=== PATIENT | male | born 1985 | race Caucasian/White ===

== ENCOUNTER → 2022-03-12 | Outpatient (CLI) | payer OTHER ==
--- NOTE | 2022-03-12 13:19 | CT ---
EXAMINATION TYPE: CT abdomen pelvis wo con CT DLP: 908.30 mGycm, Automated exposure control for dose reduction was used. DATE OF EXAM: 03/12/2022 12:58 PM COMPARISON: None. CLINICAL INDICATION:Male, 36 years old with history of R10.9 unspecified abdominal pain; lower R flan k pain that wraps around the front TECHNIQUE: Axial CT of the abdomen and pelvis. Sagittal and coronal reformats were created on a [employer] workstation. Contrast used: None Oral contrast used: without Oral Contrast FINDINGS: LOWER CHEST: Unremarkable ABDOMEN LIVER: Unremarkable GALLBLADDER AND BILE DUCTS: Unremarkable. PANCREAS: Unremarkable. SPLEEN: Small splenule is present. ADRENAL GLANDS: Unremarkable. KIDNEYS AND URETERS: No evidence of hydronephrosis or renal calculus. The ureters are unremarkable. PELVIS BLADDER: Unremarkable REPRODUCTIVE: Coarse calcifications of the prostate gland are identified. ABDOMEN & PELVIS STOMACH AND BOWEL: No evidence of bowel obstruction. Appendix is normal without significant fat stran ding changes or dilation. PERITONEUM: No evidence of pneumoperitoneum or free fluid. VASCULATURE: No evidence of aortic aneurysm. MUSCULOSKELETAL: No acute osseous abnormalities, mild scoliosis changes to the lower thoracic spine p artially visualized. LYMPH NODES: No gross evidence for lymphadenopathy. SOFT TISSUE/ABDOMINAL WALL: Fat filled umbilical hernia measuring 1.3 cm at the neck. IMPRESSION: No convincing evidence for acute intra-abdominal process. The appendix is within normal limits for si ze without significant fat stranding changes or evidence of appendicitis. No evidence of right hydron ephrosis or obstructive uropathy
== END | disposition home or self-care (01) ==
LOC: RADCTMAIN 12:38
PROVIDERS: ATTEND Family Medicine
DX: R10.9 Unspecified abdominal pain (principal)
CPT/HCPCS: 74176

== ENCOUNTER → 2023-02-14 | Outpatient (CLI) | payer OTHER ==
--- NOTE | 2023-02-14 15:49 | MR ---
EXAMINATION TYPE: MR cervical spine wo con DATE OF EXAM: 02/14/2023 COMPARISON: None HISTORY: Neck pain that radiates down left arm, left arm numbness and loss of strength CONTRAST: None TECHNIQUE: Multiplanar multiecho imaging on a 3.0 Lissette magnet is performed through the cervical spin e. FINDINGS: The craniovertebral junction is normal. Vertebral body alignment is normal. C7-T1: Mild disc bulge is present with anterior thecal sac contact. There may be some cord contact. No cord flattening is evident. No spinal canal stenosis present. Neural foramen are patent.. C6-7: Broad-based disc bulge is present with anterior thecal sac impression. Cord contact is present. Mild cord flattening may be present. There is moderate left foraminal narrowing.. C5-6: Left paracentral disc herniation is present with mild anterior thecal sac compression. A small annular tear may be present at this level at the disc herniation. This has anterior thecal sac contac t and cord contact. Cord deformity is not identified. No spinal canal stenosis present. Neural forame n are patent.. C4-5: There is a central disc herniation with moderate anterior thecal sac compression. Cord contact without cord deformity is present. Subligamentous disc extension superiorly is present. Moderate bila teral foraminal narrowing is present, greater on the right. C3-4: No focal disc herniation or significant disc bulge is evident. Minimal subligamentous disc exte nsion may be present in the sagittal plane. No spinal canal stenosis. Moderate right mild left negro inal narrowing present. C2-3: No focal disc herniation or significant disc bulge is evident. No spinal canal stenosis or hector ral foraminal stenosis is present. IMPRESSION: 1. Left paracentral disc herniation with cord contact without deformity present C5-6. No spinal canal stenosis. 2. Broad-based disc bulge with anterior thecal sac flattening cord contact C6-7. There may be minimal cord contact. 3. Central C4-5 disc herniation with cord contact. No cord deformity is evident 4. Foraminal stenosis discussed above.
== END | disposition home or self-care (01) ==
LOC: RADMRIMAIN 13:45
PROVIDERS: ATTEND Orthopaedic Surgery Orthopaedic Surgery of the Spine
DX: M50.122 Cervical disc disorder at C5-C6 level with radiculopathy (principal); M99.71 Connective tissue and disc stenosis of intervertebral foramina of cervical region; M79.12 Myalgia of auxiliary muscles, head and neck
CPT/HCPCS: 72141

== ENCOUNTER → 2023-02-25 | Outpatient (CLI) | payer OTHER ==
--- NOTE | 2023-02-25 10:40 | XR ---
EXAMINATION TYPE: XR chest 2V DATE OF EXAM: 02/25/2023 10:17 AM CLINICAL INDICATION:Male, 37 years old with history of PRE SURG TESTING; [facility] COMPARISON: None TECHNIQUE: XR chest 2V Frontal and lateral views of the chest. FINDINGS: Lungs/Pleura: There is no evidence of pleural effusion, focal consolidation, or pneumothorax. Pulmonary vascularity: Unremarkable. Heart/mediastinum: Cardiomediastinal silhouette is unremarkable. Musculoskeletal: No acute osseous pathology. IMPRESSION: No acute cardiopulmonary disease/process.
[2023-02-25 10:52] LABS: INR 0.9 (<1.2); Partial Thromboplastin Time 22.8 sec (22.0-30.0); Prothrombin Time 9.7 sec (10.0-12.5)
[2023-02-25 15:28] LABS: Basophils # (A) 0.03 X 10*3/uL (0.00-0.10); Basophils % (A) 0.4 %; Eosinophils # (A) 0.11 X 10*3/uL (0.04-0.35); Eosinophils % (A) 1.4 %; HCT 45.8 % (39.6-50.0); HGB 14.9 g/dL (13.0-17.0); Lymphocytes # (A) 2.01 X 10*3/uL (0.90-5.00); Lymphocytes % (A) 26.4 %; MCHC 32.5 g/dL (32.0-37.0); MCV 89.3 FL (80.0-97.0); Mean Platelet Volume 9.6 FL (9.5-12.2); Monocytes # (A) 0.51 X 10*3/uL (0.20-1.00); Monocytes % (A) 6.7 %; NRBC Per 100 WBC 0 X 10*3/uL (0.00-0.01); Neutrophils # (A) 4.92 X 10*3/uL (1.80-7.70); Neutrophils % (A) 64.8 %; Platelet Count 254 X 10*3/uL (140-440); RBC 5.13 X 10*6/uL (4.40-5.60)
[2023-02-25 15:54] LABS: ALT 98 U/L (10-49); AST 26 U/L (14-35); Albumin 4.7 g/dL (3.8-4.9); Albumin/Globulin Ratio 2.14 Ratio (1.60-3.17); Alkaline Phosphatase 59 U/L (41-126); BUN/Creat Ratio 24.44 Ratio (12.00-20.00); Calcium 9.7 mg/dL (8.7-10.3); Carbon Dioxide 26.7 mmol/L (21.6-31.8); Chloride 107 mmol/L (96-109); Globulin 2.2 g/dL (1.6-3.3); Glucose 95 mg/dL (70-110); Potassium 4.8 mmol/L (3.5-5.5); Sodium 142 mmol/L (135-145); Total Bilirubin <0.2 mg/dL (0.3-1.2); Total Protein 6.9 g/dL (6.2-8.2)
[2023-02-25 17:26] LABS: Appearance,Urine Clear (Clear); Bilirubin,Urine Negative (Negative); Blood,Urine Negative (Negative); Color,Urine Dark Yellow (Yellow); Ketones,Urine Trace (Negative); Nitrite,Urine Negative (Negative); Specific Gravity,Urine 1.034 (1.001-1.030)
== END | disposition home or self-care (01) ==
LOC: LABPAT 09:57
PROVIDERS: ATTEND Orthopaedic Surgery Orthopaedic Surgery of the Spine
DX: Z01.812 Encounter for preprocedural laboratory examination (principal); M51.26 Other intervertebral disc displacement, lumbar region
CPT/HCPCS: 36415; 71046; 80053; 81003; 85025; 85610; 85730; 87070

== ENCOUNTER → 2023-03-05 | Outpatient (CLI) | payer OTHER | END | disposition home or self-care (01) | LOC: LABPAT 12:48 | PROVIDERS: ATTEND Orthopaedic Surgery Orthopaedic Surgery of the Spine | DX: Z01.812 Encounter for preprocedural laboratory examination (principal); S06.A1XD Traumatic brain compression with herniation, subsequent encounter; X58.XXXD Exposure to other specified factors, subsequent encounter | CPT/HCPCS: 36415; 86850; 86900; 86901 ==

== ENCOUNTER 2023-03-13 12:13 | Day surgery (SDC) | payer OTHER ==
[2023-03-07 16:27] VITALS: BMI 30.2
[~2023-03-13 12:13] MED LIST: DEXAMETHASONE SOD PHOSPHATE 4 MG/ML 1 ML VIAL IV ONE; HYDROmorphone 0.5 MG/0.5 ML SYRINGE IVP PRN; LACTATED RINGERS 1,000 ML IV SCH; LIDOCAINE 1% (10MG/ML) FOR IV START INTRADERMA PRN; MIDAZOLAM 2 MG/2 ML VIAL IV PRN; ONDANSETRON 4 MG/2 ML VIAL IVP ONE; ceFAZolin 1,000 MG in SODIUM CHLORIDE 0.9% IRRIGATIO 1,000 ML IRRIGATION PRN
[2023-03-13] MEDS ORDERED: LACTATED RINGERS 1,000 ML IV ONE ×2 (13:25→16:18)
[2023-03-13 13:28] LABS: Glucose,Whole Blood 92 mg/dL (70-110)
[2023-03-13] MEDS ORDERED: MIDAZOLAM 2 MG/2 ML VIAL ONE (14:39)
[2023-03-13] MEDS ORDERED: KETAMINE HCL IN 0.9 % NACL 50 MG/5 ML SYRINGE ONE (14:39)
[2023-03-13] MEDS ORDERED: DEXAMETHASONE SOD PHOSPHATE 4 MG/ML 1 ML VIAL ONE (14:39)
[2023-03-13] MEDS ORDERED: SUCCINYLCHOLINE CHLORIDE 200 MG/10 ML VIAL IV ONE (14:39)
[2023-03-13] MEDS ORDERED: PROPOFOL 10 MG/ML 20 ML VIAL IV ONE (14:39)
[2023-03-13] MEDS ORDERED: LIDOCAINE 1% INJ 10MG/ML (20 ML MDV) ONE (14:39)
[2023-03-13] MEDS ORDERED: fentaNYL (PF) 50 MCG/ML 2 ML AMP ONE (14:39)
[2023-03-13] MEDS ORDERED: GELATIN SPONGE,ABSORB (LARGE) 1 EACH SPONGE TOPICAL ONE (15:11)
[2023-03-13] MEDS ORDERED: THROMBIN (BOVINE) 5,000 UNIT VIAL TOPICAL ONE (15:11)
[2023-03-13] MEDS ORDERED: LIDOCAINE 0.5%-EPI 1:200,000 50 ML VIAL SQ ONE (15:11)
[2023-03-13] MEDS ORDERED: HYDROmorphone 0.5 MG/0.5 ML SYRINGE IVP PRN (16:42)
[2023-03-13] MEDS ORDERED: HYDROmorphone 1 MG/ML 1 ML SYRINGE IVP PRN (16:42)
[2023-03-13] MEDS ORDERED: CYCLOBENZAPRINE 10 MG TAB PO PRN ×2 (16:42→16:44)
[2023-03-13] MEDS ORDERED: ONDANSETRON 4 MG/2 ML VIAL IVP PRN (16:42)
[2023-03-13] MEDS ORDERED: traMADol 50 MG TAB PO PRN (16:42)
--- NOTE | 2023-03-13 16:50 | P.OP ---
Date of Procedure: 03/13/23 Preoperative Diagnosis: Cervical myelopathy, cervical myelomalacia, cervical stenosis C5 6 C6 7, herniated nucleus pulposis C5 6 C6 7, left upper extremity radiculopathy, left upper extremity weakness Postoperative Diagnosis: Same Anesthesia: GETA Pathology: none sent Condition: stable Disposition: PACU Description of Procedure: BRIEF OPERATIVE NOTE Preoperative Diagnosis:Cervical myelopathy, cervical myelomalacia, cervical stenosis C5 6 C6 7, herniated nucleus pulposis C5 6 C6 7, left upper extremity radiculopathy, left upper extremity weakness Postoperative Diagnosis: Same Procedure: Anterior cervical decompression discectomy and fusion C5 6 C6 7 Placement of interbody graft C5 6 C6 7 Application of anterior cervical plate C5 6 and 7 Surgeon: Dr. Linda Body Line Finisher: Grady Villafana is present throughout the entire the case persistence during positioning, dissection, exposure, visualization, and all crucial elements of the case as well as closure. Anesthesia: General anesthesia Estimated blood loss: Approximately 30 mL Complications: None apparent Components implanted: K2M Phillip Hominy anterior cervical plate system with screws and Vikos interbody allograft bone graft with 1 mL of DBX bone putty Disposition: To recovery room in good stable condition. OPERATIVE INDICATIONS The patient has had significant and severe issues in their neck and upper extremities. He noted significant weakness at his left upper extremity and tingling in his left arm. He is not having significant benefit despite a ggressive conservative care. The patient had evaluation was found have significant cervical stenosis severe at C5 6 and C6 7. There is disc herniation at C6 7 and at C5 6 which correlated with his neck and upper extremity symptoms. He showed evidence on his imaging of cervical myelomalacia and on his exam was exhibiting signs of myelopathy. With his significant symptoms and weakness with his spinal cord changes we felt that he had significant chance of worsening left alone and would have best potential benefit with cervical decompression. I felt that surgical decompression with discectomy and fusion at C5 6 C6 7 would give excellent chance of recovery and remedy his stenosis. The patient has been through conservative treatment. We discussed various treatment options including surgery, and the patient wishes to proceed with surgery We discussed the risk, patient's alternatives and benefits of surgery including but not limited to, risk of bleeding risk of infection, risk of need for further surgery, risk of decreased, loss of motion, muscle function, malunion nonunion, hardware failure, nerve damage, paralysis, heart attack, and . OPERATIVE SUMMARY After discussing all the risks, patient alternatives and benefits at length, the patient elected to proceed with surgical intervention, signed informed consent, and presented for their procedure. The patient was seen and examined in the preoperative holding area and the surgical site was marked. The patient was given antibiotics and brought to the operating room. The patient was positioned on the operating room table in a supine position being careful to pad any bony prominences and pressure points. The patient was sedated and intubated by anesthesia in standard fashion. Once the airway and C- spine were stabilized the patient's arms were padded and tucked at her side, with her shoulders gently taped. The head was placed in a donut pad with the neck in good neutral alignment and position. We were careful to maintain the patient's cervical spine and good neutral alignment and position throughout. The patient was prepped and draped in a normal standard fashion. An appropriate timeout and keystone protocol performed. We were able to proceed with the surgery. The local wound area was infiltrated with local anesthetic. An incision was made transversely approximately 2-1/2 cm over the appropriate levels at C6. Dissection was taken down subcutaneously to the level of the platysma which was split in line with its fibers. Dissection was taken with a carotid approach, with the trachea and esophagus medial and the carotid sheath laterally. We dissected down to the anterior surface of the vertebral bodies. Intraoperative x-ray was taken which showed a marker at the appropriate level at C6 7. With the appropriate level positively confirmed, we were able to proceed with discectomy at the appropriate levels first at C6 7 and then at C5 6. All of the operative levels were exposed appropriately. The patient had all their twitches back, and there was no evidence of recurrent laryngeal issue. The wound was copiously irrigated and suctioned dry as had been done periodically throughout the case. At the appropriate level/levels, I established an annulotomy with an 11 blade scalpel. A discectomy was performed with a combination of pituitary rongeurs, curettes, a high-speed bur, and Kerrison rongeurs. The posterior longitudinal ligament was taken down as were any posterior osteophytes. This gave good central and bilateral foraminal decompression. At C6 7 there is obvious disc herniation with disc extrusion to the left side which was removed and decompressed. At C5 6 there is significant disc protrusion and herniation was decompressed as well. There is no evidence of any dural tear or leak. The endplates were prepared with a high-speed bur. With the endplates in good parallel position, I was able to size for the appropriate size interbody graft. The wound was irrigated and suctioned dry the graft was prepared and malleted into position. It had good alignment and position with the anterior surface flush with the anterior surface of the vertebral bodies. This was done similarly the appropriate levels first at C6 7 and then at C5 6. With the grafts intact, I was able to measure and contour and appropriate sized plate. The plate was positioned at the midline over the appropriate levels at C5 6 and 7. Screw holes were established with a hand drill and drill guide. Screws were placed in good alignment and position with excellent bony purchase. They were seated under the locking device. The construct was checked and found to be stable. Intraoperative x-ray was taken which showed good alignment and position of the implants at the appropriate levels. There was no evidence of any dural tear or leak. Good hemostasis was maintained. The wound was copiously irrigated and suctioned dry as had been done periodically throughout the case. The platysma was closed with absorbable suture. The subcutaneous tissue was closed. The subcuticular tissue was closed with absorbable suture. The wound was cleaned and dried and dressed appropriately. A soft cervical collar was placed appropriately. The patient was woken up by anesthesia, extubated, transferred back gently to their hospital bed and brought to the recovery room in good stable condition. The patient will be admitted to the hospital for appropriate postoperative care, medical management and monitoring. We will continue to follow them closely about the postoperative course.
[2023-03-13] MEDS: SODIUM CHLORIDE 0.9% 1,000 ML IV SCH (17:55)
[2023-03-13] MEDS: HYDROcodone/APAP 5-325MG 1 EACH TAB PO PRN ×2 (18:25→23:00)
--- NOTE | 2023-03-13 18:39 | XR ---
EXAMINATION TYPE: XR cervical spine 1V DATE OF EXAM: 03/13/2023 COMPARISON: 03/13/2023 HISTORY: Cervical fusion TECHNIQUE: Lateral cervical spine FINDINGS: Metallic needle directed towards C6-7 disc level. Patient is intubated IMPRESSION: 1. Needle directed to the C6-7 level
--- NOTE | 2023-03-13 18:40 | XR ---
EXAMINATION TYPE: XR cervical spine 1V DATE OF EXAM: 03/13/2023 COMPARISON: 03/13/2023 earlier exam HISTORY: Anterior cervical fusion TECHNIQUE: Lateral cervical spine FINDINGS: Anterior cervical fusion is performed C5-C7. Disc spacers are present at these levels. Brenda ent is intubated. IMPRESSION: 1. Anterior cervical fusion see C 5 through C7
[2023-03-14] MEDS ORDERED: CLINDAMYCIN 900 MG in DEXTROSE 5% IN WATER 50 ML IVPB SCH ×2
[2023-03-14] MEDS: BENZOCAINE/MENTHOL LOZENG 1 EACH LOZENGE MUCOUS MEM PRN ×2 (01:29→06:22)
[2023-03-14] MEDS: SODIUM CHLORIDE 0.9% 1,000 ML IV SCH (06:22)
[2023-03-14] MEDS: HYDROcodone/APAP 5-325MG 1 EACH TAB PO PRN (07:00)
[2023-03-14 08:12] VITALS: BP 115/72; PULSE 62; RESP 19; TEMP 97.4
[2023-03-14] MEDS ORDERED: SERTRALINE 100 MG TAB PO SCH (09:00)
[2023-03-14] MEDS ORDERED: MULTIVITAMINS, THERA 1 EACH TAB PO SCH (09:00)
[2023-03-14] MEDS ORDERED: CHOLECALCIFEROL 125 MCG (5000 IU) TABLET PO SCH (09:00)
--- NOTE | 2023-03-14 09:48 | P.DS ---
Providers Date of admission: 03/13/23 Attending physician: Hortensia Linda Primary care physician: [facility] Course: The patient presented on the day of admission as per their operative note. He underwent anterior cervical decompression with discectomy and fusion C5 6 C6 7 for his cervical stenosis with myelopathy and myelomalacia and disc herniation with left lower extremity weakness. He feels he has some improvement in his strength his left arm. He still has some tingling at certain locations his arm and some pain up behind the shoulder. He is swelling adequately. He is ambulating and voiding freely. Physical Exam The incision site is clean dry and intact. There is no erythema no drainage. There is no purulence no evidence of infection. His neck is soft and supple Abdomen soft and nontender. Chest has good excursion with deep inspiration and expiration. The patient has active and passive range of motion intact at the upper and lower extremities. There is no acute change in neurologic status. He has motion intact at his upper extremities he does have some diffuse weakness at his left upper extremity Hospital Course Postoperative day #1 status post decompression fusion and anterior cervical discectomy and fusion C5 6 C6 7 for his cervical stenosis with disc herniation cervical myelopathy and upper extremity radiculopathy and weakness. Patient is making good improvement postoperatively. The patient has been making good progress postoperatively. They have completed the prophylactic antibiotics without any signs or symptoms of infection. The patient has been able to advance their diet, and is tolerating diet adequately. The pain was initially controlled with IV medications and is now controlled appropriately with oral medications. The patient has been able to increase their mobilization. The patient has progressed appropriately. I think they are in good stable condition for discharge today. They will be sent home with appropriate prescriptions. I answered their questions to the best of my ability in a language that they can understand and they are agreeable with the plan. They will follow up as directed in approximately 2 weeks or sooner if he is having problems. Patient Condition at Discharge: Good Plan - Discharge Summary Discharge Rx Participant: No New Discharge Prescriptions: New HYDROcodone/APAP 5-325MG [[place] 5-325] 1 tab PO Q6HR PRN 7 Days #28 tab PRN Reason: Pain No Action Sertraline [Zoloft] 100 mg PO QAM Ibuprofen [Motrin] 400 - 600 mg PO Q6HR PRN PRN Reason: Pain Cyclobenzaprine [Flexeril] 10 mg PO TID PRN PRN Reason: Pain Multivitamins, Thera [Multivitamin (formulary)] 1 tab PO DAILY Cholecalciferol [Vitamin D3 (25 Mcg = 1000 Iu)] 125 mcg PO DAILY Discharge Medication List Sertraline [Zoloft] 100 mg PO QAM 08/07/15 [History] Cholecalciferol [Vitamin D3 (25 Mcg = 1000 Iu)] 125 mcg PO DAILY 03/07/23 [History] Cyclobenzaprine [Flexeril] 10 mg PO TID PRN 03/07/23 [History] Ibuprofen [Motrin] 400 - 600 mg PO Q6HR PRN 03/07/23 [History] Multivitamins, Thera [Multivitamin (formulary)] 1 tab PO DAILY 03/07/23 [History] HYDROcodone/APAP 5-325MG [[place] 5-325] 1 tab PO Q6HR PRN 7 Days #28 tab 03/13/23 [Rx] Follow up Appointment(s)/Referral(s): Hortensia Linda DO [Doctor of Osteopathic Medicine] - 2 Weeks Activity/Diet/Wound Care/Special Instructions: Keep site clean. May shower with waterproof Tegaderm intact. Do not soak in a tub. After 72 hours postoperatively, patient May remove dressing and then may shower with area uncovered. Leave glue intact and allow it to fray off on its own. May ambulate as tolerated. Avoid heavy or rigorous activity. No repetitive bending twisting or lifting. No overhead work. Discharge Disposition: HOME SELF-CARE
== END 2023-03-14 09:47 | disposition home or self-care (01) ==
LOC: OR 12:13 → 4SSUR 16:42 → OR 03-14 09:47
PROVIDERS: ATTEND Orthopaedic Surgery Orthopaedic Surgery of the Spine
DX: M48.02 Spinal stenosis, cervical region (principal); M50.223 Other cervical disc displacement at C6-C7 level; E66.9 Obesity, unspecified; G95.89 Other specified diseases of spinal cord; Z88.2 Allergy status to sulfonamides; Z88.1 Allergy status to other antibiotic agents; Z88.8 Allergy status to other drugs, medicaments and biological substances
CPT/HCPCS: 72020; 20930; 20931; 22551; 22552; 22845; C1713 ×2; C1762 ×2; J2250; J0690; J2405; J1170; J0736

== ENCOUNTER → 2024-08-24 | Outpatient (CLI) | payer OTHER ==
[2024-08-24 10:23] LABS: HCT 44.6 % (39.6-50.0); HGB 14.5 g/dL (13.0-17.0); MCH 28.3 pg (27.0-32.0); MCHC 32.5 g/dL (32.0-37.0); MCV 86.9 FL (80.0-97.0); Mean Platelet Volume 9.8 FL (9.5-12.2); NRBC Per 100 WBC 0 X 10*3/uL (0.00-0.01); Platelet Count 239 X 10*3/uL (140-440); RBC 5.13 X 10*6/uL (4.40-5.60); RDW 13.2 % (11.5-14.5); WBC 5.06 X 10*3/uL (4.50-10.00)
[2024-08-24 10:36] LABS: ALT 21 U/L (10-49); AST 21 U/L (14-35); Albumin 4.6 g/dL (3.8-4.9); Albumin/Globulin Ratio 2.09 Ratio (1.60-3.17); Alkaline Phosphatase 57 U/L (41-126); Blood Urea Nitrogen 19.2 mg/dL (9.0-27.0); Calcium 9.5 mg/dL (8.7-10.3); Carbon Dioxide 24.6 mmol/L (21.6-31.8); Chloride 104 mmol/L (96-109); Chol/HDL Ratio 4.15 Ratio; Globulin 2.2 g/dL (1.6-3.3); Glucose 105 mg/dL (70-110); LDL Cholesterol,Calculated 148.1 mg/dL (0.0-131.0); Potassium 4.8 mmol/L (3.5-5.5); Sodium 139 mmol/L (135-145); Total Bilirubin 0.3 mg/dL (0.3-1.2); Total Protein 6.8 g/dL (6.2-8.2); VLDL Calculation 11.28 mg/dL (5.00-40.00)
== END | disposition home or self-care (01) ==
LOC: LABWHC1 07:10
PROVIDERS: ATTEND Family Medicine
DX: Z00.00 Encounter for general adult medical examination without abnormal findings (principal)
CPT/HCPCS: 36415; 80053; 80061; 85027